=== PATIENT | female | born 1995 | race Two or more races ===

== ENCOUNTER 2023-10-27 17:32 | Emergency (ER) | payer MEDICAID ==
[~2023-10-27] VITALS: Ht 154.9 cm; Wt 75.9 kg
[2023-10-27 17:36] VITALS: TEMP 98.5
[2023-10-27] MEDS: ACETAMINOPHEN/CODEINE 300-30 MG TABLET PO ONE (19:32)
[2023-10-27] MEDS ORDERED: ACET-2080 PO (20:00)
[2023-10-27 20:12] VITALS: BP 116/61; PULSE 63; RESP 16
== END 2023-10-27 20:18 | disposition home or self-care (01) ==
LOC: EMS 17:45
DX: K12.0 Recurrent oral aphthae (principal); F17.210 Nicotine dependence, cigarettes, uncomplicated; Z90.49 Acquired absence of other specified parts of digestive tract; Z88.6 Allergy status to analgesic agent
CPT/HCPCS: 99283